=== PATIENT | female | born 1985 | race Caucasian/White ===

== ENCOUNTER 2021-10-19 14:05 | Inpatient (IN) | payer OTHER ==
[~2021-10-19] VITALS: Ht 167.6 cm; Wt 78.9 kg
[2021-10-25] MEDS ORDERED: PRENATAL TABLE1 EAC3 PO (09:38)
[2021-10-25] MEDS ORDERED: RHOGAM ULTR1500 UNIT (10:59)
[2021-10-25] MEDS ORDERED: CETIRIZINE HCL10 MG (10:59)
[2021-10-25] MEDS ORDERED: HYDROCORT-PRAMO30 G1 (11:00)
== END 2021-10-27 12:53 | disposition home or self-care (01) | DRG 807 ==
LOC: OB/GYN 10-25 08:08 → LDR 10-25 08:08 → OB/GYN 10-25 11:53
PROVIDERS: ADMIT Obstetrics & Gynecology Maternal & Fetal Medicine; ATTEND Obstetrics & Gynecology Maternal & Fetal Medicine
PROC: 10E0XZZ Delivery of Products of Conception, External Approach (ICD-10-PCS; principal; 2021-10-25)
PROC: 0HQ9XZZ Repair Perineum Skin, External Approach (ICD-10-PCS; 2021-10-25)
PROC: 4A1HXCZ Monitoring of Products of Conception, Cardiac Rate, External Approach (ICD-10-PCS; 2021-10-25)
DX: O70.0 First degree perineal laceration during delivery (principal); Z37.0 Single live birth; Z3A.38 38 weeks gestation of pregnancy; Z20.822 Contact with and (suspected) exposure to COVID-19

== ENCOUNTER 2022-10-01 11:05 | Emergency (ER) | payer OTHER ==
[~2022-10-01] VITALS: Ht 165.1 cm; Wt 70.8 kg
[~2022-10-01 11:05] MED LIST: CETIRIZINE HCL10 MG; HYDROCORT-PRAMO30 G1; PRENATAL TABLE1 EAC3 PO; RHOGAM ULTR1500 UNIT
[2022-10-01] MEDS ORDERED: NAPROXEN500 MG PO (15:22)
== END 2022-10-01 15:47 | disposition home or self-care (01) ==
LOC: ER 11:05
DX: O03.9 Complete or unspecified spontaneous abortion without complication (principal)